=== PATIENT | female | born 2000 | race African-American/Black ===

== ENCOUNTER 2019-05-13 23:33 | Emergency (ER) | payer OTHER ==
[~2019-05-13] VITALS: Ht 175.3 cm; Wt 67.6 kg
[2019-05-13 23:50] VITALS: Ht 175.3 cm; Wt 67.6 kg
[2019-05-14 00:55] VITALS: BP 138/92
== END 2019-05-14 00:55 | disposition home or self-care (01) ==
LOC: ED 23:33
DX: H66.92 Otitis media, unspecified, left ear (principal); J06.9 Acute upper respiratory infection, unspecified